=== PATIENT | male | born 1985 | race Caucasian/White ===

== ENCOUNTER 2024-06-10 08:44 | Inpatient (IN) | payer MEDICAID ==
[~2024-06-10] VITALS: Ht 190.5 cm; Wt 86.9 kg
[2024-06-10] MEDS: SODIUM CHLORIDE 0.9% 1,000 ML IV ONE (09:14)
[2024-06-10 09:16] LABS: HEMATOCRIT. 41.3 % (42.0-52.0); HEMOGLOBIN. 13.7 g/dL (14.0-18.0); MEAN CORPUSCULAR HEMOGLOBIN 33.2 pg (28.0-32.0); MEAN CORPUSCULAR HGB CONC 33.1 g/dL (31.0-37.0); MEAN CORPUSCULAR VOLUME 100.3 fL (80.0-94.0); PLATELET 60 x1000/uL (130-400); RED BLOOD CELL COUNT 4.12 mill/uL (4.7-6.1); RED CELL DISTRIBUTION WIDTH 12.9 % (11.6-14.6); WHITE BLOOD COUNT 11.5 x1000/uL (4.5-11.0)
[2024-06-10 09:18] LABS: DIFFERENTIAL COMMENT 1
[2024-06-10 09:24] LABS: CHLORIDE 98 mEq/L (98-107); POTASSIUM 3.3 mEq/L (3.5-5.1); SODIUM 139 mEq/L (136-145)
[2024-06-10 09:25] LABS: CARBON DIOXIDE 18 mEq/L (21-32)
[2024-06-10 09:30] LABS: CREATININE 1.2 mg/dL (0.6-1.3); GLUCOSE 170 mg/dL (70-105); UREA NITROGEN BLOOD 9 mg/dL (9-23)
[2024-06-10 09:44] LABS: ETHANOL BLOOD < 10 mg/dL (<10)
[2024-06-10 09:45] LABS: TROPONIN I HIGH SENSITIVITY 79 ng/L (3.0-53)
[2024-06-10 11:19] LABS: CLARITY URINE CLEAR (CLEAR); COLOR URINE YELLOW (YELLOW); GLUCOSE URINE NEGATIVE (NEGATIVE); KETONES URINE 2+ (NEGATIVE); LEUKOCYTE ESTERASE URINE NEGATIVE (NEGATIVE); NITRITE URINE NEGATIVE (NEGATIVE); OCCULT BLOOD URINE 2+ (NEGATIVE); PROTEIN URINE 1+ (NEGATIVE); SPECIFIC GRAVITY URINE 1.013 (1.005-1.030)
[2024-06-10 11:23] LABS: CALCIUM 10.1 mg/dL (8.7-10.4)
[2024-06-10 11:42] LABS: RBC URINE 0-2 /hpf (0-2); SQUAMOUS EPITHELIAL CELL URINE RARE /lpf (RARE/1+)
[2024-06-10 11:44] LABS: BACTERIA URINE TRACE
[2024-06-10] MEDS ORDERED: ONDANSETRON HCL 4MG/2ML INJ IV PRN (11:45)
[2024-06-10] MEDS ORDERED: ACETAMINOPHEN 325MG TABLET PO PRN (11:45)
[2024-06-10] MEDS ORDERED: LORAZEPAM 2MG/ML INJ IV PRN (11:45)
[2024-06-10 11:50] LABS: WBC URINE NONE SEEN /hpf (0-2)
[2024-06-10] MEDS: METOPROLOL TARTRATE 50MG TABLET PO NR (12:01)
[2024-06-10 12:37] LABS: PLATELET ESTIMATE DECREASED
[2024-06-10 13:45] VITALS: BP 122/86; PULSE 86; RESP 20; TEMP 37.8
[2024-06-10 15:11] LABS: *AMPHETAMINES SCREEN URINE NEGATIVE (NEGATIVE); *BARBITURATES SCREEN URINE NEGATIVE (NEGATIVE); *BENZODIAZEPINES SCREEN URINE NEGATIVE (NEGATIVE); *COCAINE SCREEN URINE NEGATIVE (NEGATIVE); CANNABINOID URINE SCREEN PRESUMPTIVE POSITIVE (NEGATIVE); ECSTASY MDMA SCREEN URINE NEGATIVE (NEGATIVE); METHADONE URINE SCREEN NEGATIVE (NEGATIVE); OPIATES URINE SCREEN NEGATIVE (NEGATIVE); PHENCYCLIDINE URINE SCREEN NEGATIVE (NEGATIVE)
[2024-06-10 16:00] VITALS: BP 126/78; PULSE 67; RESP 18; TEMP 37.7; O2SAT 99
[2024-06-10 19:57] VITALS: BP 134/89; PULSE 91; RESP 19; TEMP 36.5; O2SAT 98
[2024-06-10] MEDS: LEVETIRACETAM 500MG PREMIX 100 ML IV SCH (20:57)
[2024-06-10] MEDS: METOPROLOL TARTRATE 50MG TABLET PO SCH (20:57)
[2024-06-11] VITALS: BP 138/79; PULSE 75; RESP 20; TEMP 36.6; O2SAT 98
[2024-06-11 04:07] VITALS: BP 111/77; PULSE 76; RESP 19; TEMP 36.2; O2SAT 98
[2024-06-11 08:00] VITALS: BP 115/62; PULSE 70; RESP 17; TEMP 36.2; O2SAT 97
[2024-06-11] MEDS: POTASSIUM CHLORIDE 20MEQ TABLET SR PO NR (08:36)
[2024-06-11 12:00] VITALS: BP 101/74; PULSE 72; RESP 17; TEMP 36.1; O2SAT 97
[2024-06-11] MEDS ORDERED: KEPP500 MT (14:32)
[2024-06-11] MEDS ORDERED: LORAZEPAM 2MG/ML UD SYRINGE IV PRN (15:19)
[2024-06-11 16:00] VITALS: BP 105/70; PULSE 69; RESP 17; TEMP 36; O2SAT 97
[2024-06-11 18:29] LABS: BASOPHILS % 0.3 % (0.0-2.0); DIFFERENTIAL COMMENT 0; HEMOGLOBIN. 13.9 g/dL (14.0-18.0); LYMPHOCYTES % 9.8 % (20.0-50.0); MEAN CORPUSCULAR HEMOGLOBIN 33.8 pg (28.0-32.0); MEAN CORPUSCULAR HGB CONC 33.2 g/dL (31.0-37.0); MEAN CORPUSCULAR VOLUME 101.8 fL (80.0-94.0); MEAN PLATELET VOLUME 10.6 fl (7.4-10.4); MONOCYTES % 9.1 % (2.0-8.0); NEUTROPHILS % 80.8 % (40.0-76.0); PLATELET 57 x1000/uL (130-400); RED BLOOD CELL COUNT 4.12 mill/uL (4.7-6.1); RED CELL DISTRIBUTION WIDTH 12.5 % (11.6-14.6); WHITE BLOOD COUNT 11.8 x1000/uL (4.5-11.0)
[2024-06-11] MEDS: LEVETIRACETAM 500MG/5ML CUP PO SCH (18:57)
[2024-06-11 20:00] VITALS: BP 125/96; PULSE 66; RESP 18; TEMP 36.6; O2SAT 98
[2024-06-11] MEDS ORDERED: CEFTRIAXONE 1GM/50ML 50 ML IV SCH (21:00)
[2024-06-12] VITALS (7 sets, daily range): BP systolic 109–134; BP diastolic 60–83; PULSE 50–82; RESP 16–20; TEMP 35.8–36.5; O2SAT 95–100
[2024-06-12] MEDS: LEVOFLOXACIN 500MG TABLET PO SCH (10:55)
[2024-06-12] MEDS ORDERED: SULF1TAB48 MT (13:31)
[2024-06-12] MEDS ORDERED: AMOX1TAB16 MT (13:31)
[2024-06-13 04:01] VITALS: BP 125/80; PULSE 91; RESP 18; TEMP 36.2; O2SAT 99
[2024-06-13 08:51] VITALS: BP 142/72; PULSE 82; RESP 20; TEMP 37.6; O2SAT 98
[2024-06-13 12:31] VITALS: BP 141/86; PULSE 76; RESP 20; TEMP 37.2; O2SAT 100
[2024-06-13 16:26] LABS: BASOPHILS % 0.3 % (0.0-2.0); EOSINOPHILS % 0.2 % (0.0-5.0); HEMATOCRIT. 39.2 % (42.0-52.0); HEMOGLOBIN. 13.3 g/dL (14.0-18.0); LYMPHOCYTES % 9.2 % (20.0-50.0); MEAN CORPUSCULAR HEMOGLOBIN 33.8 pg (28.0-32.0); MEAN CORPUSCULAR HGB CONC 33.9 g/dL (31.0-37.0); MEAN CORPUSCULAR VOLUME 99.8 fL (80.0-94.0); MONOCYTES % 13.6 % (2.0-8.0); NEUTROPHILS % 76.7 % (40.0-76.0); PLATELET 76 x1000/uL (130-400); RED BLOOD CELL COUNT 3.92 mill/uL (4.7-6.1); RED CELL DISTRIBUTION WIDTH 12.3 % (11.6-14.6); WHITE BLOOD COUNT 6.9 x1000/uL (4.5-11.0)
[2024-06-13 16:39] VITALS: BP 140/48; PULSE 75; RESP 20; TEMP 37.1; O2SAT 100
[2024-06-13 16:40] LABS: CALCIUM 10.5 mg/dL (8.7-10.4); CARBON DIOXIDE 29 mEq/L (21-32); CHLORIDE 100 mEq/L (98-107); POTASSIUM 3.4 mEq/L (3.5-5.1); SODIUM 139 mEq/L (136-145)
[2024-06-13 16:46] LABS: CREATININE 0.8 mg/dL (0.6-1.3); GLUCOSE 136 mg/dL (70-105); UREA NITROGEN BLOOD 13 mg/dL (9-23)
[2024-06-13] MEDS: QUETIAPINE FUMARATE 50MG TABLET PO SCH (21:54)
[2024-06-13] MEDS: LORAZEPAM 1MG TABLET PO PRN (21:54)
[2024-06-14 08:00] VITALS: BP 119/78; PULSE 82; RESP 18; TEMP 35.9; O2SAT 98
[2024-06-14 12:00] VITALS: BP 104/67; PULSE 68; RESP 18; TEMP 36; O2SAT 100
[2024-06-14 16:00] VITALS: BP 111/81; PULSE 75; RESP 20; TEMP 36.2; O2SAT 99
[2024-06-14 20:00] VITALS: BP 118/74; PULSE 63; RESP 18; TEMP 36.4; O2SAT 99
[2024-06-14 23:54] VITALS: BP 113/48; PULSE 64; RESP 18; TEMP 36.6; O2SAT 99
[2024-06-15 04:00] VITALS: BP 106/55; PULSE 63; RESP 18; TEMP 36.3; O2SAT 99
[2024-06-15 08:00] VITALS: BP 97/72; PULSE 72; RESP 18; TEMP 37.2; O2SAT 96
[2024-06-15 12:00] VITALS: BP 116/77; PULSE 73; RESP 18; TEMP 36.4; O2SAT 96
[2024-06-15 16:00] VITALS: BP 126/83; PULSE 73; RESP 18; TEMP 36.3; O2SAT 96
[2024-06-15 19:42] VITALS: BP 120/78; PULSE 74; RESP 18; TEMP 36.1; O2SAT 97
[2024-06-15 23:42] VITALS: BP 117/67; PULSE 54; RESP 18; TEMP 36; O2SAT 98
[2024-06-16 04:00] VITALS: BP 110/64; PULSE 59; RESP 18; TEMP 36.2; O2SAT 99
[2024-06-16 08:00] VITALS: BP 126/59; PULSE 98; RESP 18; TEMP 36.4; O2SAT 99
[2024-06-16 11:38] VITALS: BP 106/63; PULSE 77; RESP 18; TEMP 36.6; O2SAT 99
[2024-06-16 16:00] VITALS: BP 117/72; PULSE 67; RESP 18; TEMP 36.7; O2SAT 98
[2024-06-16 20:00] VITALS: BP 123/75; PULSE 65; RESP 18; TEMP 36.3; O2SAT 99
[2024-06-17 04:00] VITALS: BP 112/79; PULSE 57; RESP 19; TEMP 36.7; O2SAT 100
[2024-06-17 08:00] VITALS: BP 108/64; PULSE 71; RESP 20; TEMP 36.4; O2SAT 99
[2024-06-17 12:00] VITALS: BP 112/67; PULSE 81; RESP 20; TEMP 36.5; O2SAT 99
[2024-06-17 16:00] VITALS: BP 101/71; PULSE 78; RESP 18; TEMP 36.6; O2SAT 100
[2024-06-17 16:18] VITALS: BP 112/67; PULSE 81; TEMP 97.7; O2SAT 99
== END 2024-06-17 18:10 | disposition home or self-care (01) | DRG 720 ==
LOC: ER 08:44 → 7WST 10:48 → EDBEDREQTM 10:51 → EDBEDREQ 10:51 → 7EST 06-17 02:22
PROVIDERS: ADMIT Internal Medicine; ATTEND Internal Medicine
PROC: 4A00X4Z Measurement of Central Nervous Electrical Activity, External Approach (ICD-10-PCS; principal; 2024-06-12)
DX: A41.9 Sepsis, unspecified organism (principal); I21.4 Non-ST elevation (NSTEMI) myocardial infarction; D69.6 Thrombocytopenia, unspecified; F29 Unspecified psychosis not due to a substance or known physiological condition; E87.6 Hypokalemia; R56.9 Unspecified convulsions; F17.210 Nicotine dependence, cigarettes, uncomplicated; F12.10 Cannabis abuse, uncomplicated; R45.850 Homicidal ideations; R45.851 Suicidal ideations; Z79.899 Other long term (current) drug therapy
CPT/HCPCS: 36415; 71045; 80048; 80305; 80320; 81003; 82962; 84145; 84484; 85025; 93005; 95816; 99285; J0696; J1953; J7030; G0480